=== PATIENT | female | born 1960 | race African-American/Black ===

== ENCOUNTER 2021-08-10 12:47 | Inpatient (IN) | payer OTHER ==
[~2021-08-10] VITALS: Ht 162.6 cm; Wt 54.6 kg
[~2021-08-10 12:47] MED LIST: ASPI81TA40 PO
[2021-08-10 14:39] LABS: BASOPHILS % (AUTO) 0.7 % (0.0-2.0); EOSINOPHILS % (AUTO) 1.2 % (1.0-6.0); HEMATOCRIT 45.3 % (36-46); HEMOGLOBIN 14.3 g/dL (12.0-16.0); LYMPHOCYTES # (AUTO) 3.6 K/uL (1.0-4.8); LYMPHOCYTES % (AUTO) 64.6 % (22.0-44.0); MEAN CORPUSCULAR HEMOGLOBIN 25.2 pg (26.0-34.0); MEAN CORPUSCULAR HGB CONC 31.6 G/dL (31.0-37.0); MEAN CORPUSCULAR VOLUME 80 fL (80-100); MONOCYTES # (AUTO) 0.6 K/uL (0.1-1.0); MONOCYTES % (AUTO) 10.4 % (2.0-9.0); NEUTROPHILS # (AUTO) 1.3 K/uL (1.8-7.7); NEUTROPHILS % (AUTO) 23.1 % (40.0-70.0); PLATELET COUNT (AUTO) 147 K/uL (150-450); RED BLOOD CELL COUNT(AUTO) 5.67 MIL/uL (4.00-5.20); RED CELL DISTRIBUTION WIDTH 13.9 % (11.5-14.5)
[2021-08-10 14:50] LABS: ANION GAP 7 mmol/L (8-16); CALCIUM, TOTAL 9.1 mg/dL (8.8-10.5); CARBON DIOXIDE 29 mmol/L (22-29); CHLORIDE 104 mmol/L (98-107); CREATININE 0.59 mg/dL (0.60-1.30); GLOMERULAR FILTR. RATE CALC > 60 mL/min (>60); GLUCOSE,RANDOM 63 mg/dL (70-110); POTASSIUM 4.1 mmol/L (3.5-5.1); SODIUM SERUM 140 mmol/L (136-145); UREA NITROGEN, BLOOD 13 mg/dL (7-18)
[2021-08-10 14:58] LABS: COVID AG,FIA SOURCE NASOPHARYNGEAL
[2021-08-10 15:16] LABS: PLATELET MORPHOLOGY COMMENT GIANT PLTS PRESENT
[2021-08-10] MEDS ORDERED: OxyCODONE HCL/ACETAMINOPHEN 5-325 MG TABLET PO PRN (16:00)
[2021-08-10] MEDS ORDERED: ONDANSETRON HCL 4 MG/2 ML VIAL IVP PRN (16:00)
[2021-08-10] MEDS ORDERED: ALBUTEROL SULFATE 2.5 MG/0.5 ML NEB SOLUTION NEB PRN (16:00)
[2021-08-10] MEDS ORDERED: ACETAMINOPHEN 325 MG TABLET PO PRN (16:00)
[2021-08-10] MEDS: ASPIRIN 81 MG CHEWABLE TABLET PO SCH (16:19)
[2021-08-10] MEDS: HEPARIN SODIUM,PORCINE 5,000 UNITS/ML VIAL SQ SCH ×2 (16:19→23:44)
[2021-08-10] MEDS: ATORVASTATIN CALCIUM 20 MG TABLET PO SCH (16:20)
[2021-08-10 18:43] VITALS: BP 125/64
[2021-08-10 19:18] VITALS: BP 120/67
[2021-08-10] MEDS: DOCUSATE SODIUM 100 MG CAPSULE PO SCH (21:20)
[2021-08-10] MEDS ORDERED: NICOTINE 14 MG/24 HOUR PATCH TD ONE (23:00)
[2021-08-11 00:27] VITALS: BP 137/59
[2021-08-11 04:45] VITALS: BP 146/85
[2021-08-11 07:21] VITALS: BP 136/76
[2021-08-11] MEDS: DOCUSATE SODIUM 100 MG CAPSULE PO SCH (08:49)
[2021-08-11] MEDS: ASPIRIN 81 MG CHEWABLE TABLET PO SCH (08:50)
[2021-08-11] MEDS: HEPARIN SODIUM,PORCINE 5,000 UNITS/ML VIAL SQ SCH (08:50)
[2021-08-11] MEDS: ATORVASTATIN CALCIUM 20 MG TABLET PO SCH (08:50)
[2021-08-11] MEDS ORDERED: AmLODIPine BESYLATE 10 MG TABLET PO SCH (09:00)
[2021-08-11] MEDS ORDERED: FAMOTIDINE 20 MG TABLET PO SCH (09:00)
[2021-08-11] MEDS ORDERED: ATOR20TA86 PO (10:21)
[2021-08-11 10:59] VITALS: BP 118/69
== END 2021-08-11 13:25 | disposition home or self-care (01) | DRG 69 ==
LOC: EMS 12:47 → 5S 15:49
PROVIDERS: ADMIT Internal Medicine; ATTEND Internal Medicine
DX: G45.9 Transient cerebral ischemic attack, unspecified (principal); F41.1 Generalized anxiety disorder; I10 Essential (primary) hypertension; Z20.822 Contact with and (suspected) exposure to COVID-19; I25.10 Atherosclerotic heart disease of native coronary artery without angina pectoris; I73.9 Peripheral vascular disease, unspecified; G62.9 Polyneuropathy, unspecified; J44.9 Chronic obstructive pulmonary disease, unspecified; F17.210 Nicotine dependence, cigarettes, uncomplicated; Z90.710 Acquired absence of both cervix and uterus; Z90.49 Acquired absence of other specified parts of digestive tract
CPT/HCPCS: 70450; 71045; 80048; 85025; 93005; 93306; 99285; G0378; J1644

== ENCOUNTER 2021-09-15 15:37 | Emergency (ER) | payer OTHER ==
[~2021-09-15] VITALS: Ht 167.6 cm; Wt 59.1 kg
[~2021-09-15 15:37] MED LIST changes: +ATOR20TA86 PO
[2021-09-15] MEDS ORDERED: HTN PO (15:48)
[2021-09-15] MEDS ORDERED: OXYMETAZOLINE HCL 0.05% 15 ML NASAL SPRAY NASAL ONE (16:45)
[2021-09-15 17:08] VITALS: BP 134/89
== END 2021-09-15 17:19 | disposition home or self-care (01) ==
LOC: EMS 15:47
DX: R04.0 Epistaxis (principal); I10 Essential (primary) hypertension; F41.9 Anxiety disorder, unspecified; I25.10 Atherosclerotic heart disease of native coronary artery without angina pectoris; F17.210 Nicotine dependence, cigarettes, uncomplicated; Z79.899 Other long term (current) drug therapy
CPT/HCPCS: 99282; Z7502; Z7610

== ENCOUNTER 2022-01-14 04:55 | Emergency (ER) | payer OTHER ==
[~2022-01-14] VITALS: Ht 167.6 cm; Wt 57.3 kg
[~2022-01-14 04:55] MED LIST changes: +HTN PO
[2022-01-14 06:16] LABS: COVID AG,FIA SOURCE NASAL SWAB
[2022-01-14 06:36] LABS: INFLUENZA TYPE A NEGATIVE FOR TYPE A (NEGATIVE); INFLUENZA TYPE B NEGATIVE FOR TYPE B (NEGATIVE)
[2022-01-14] MEDS ORDERED: ALBUTEROL SULFATE HFA 90 MCG/PUFF 8 GM INHALER IH ONE (07:30)
[2022-01-14] MEDS ORDERED: AZIT250T9 PO (08:51)
[2022-01-14 09:28] VITALS: BP 130/86
== END 2022-01-14 09:28 | disposition home or self-care (01) ==
LOC: EMS 04:58
DX: J44.1 Chronic obstructive pulmonary disease with (acute) exacerbation (principal); Z20.822 Contact with and (suspected) exposure to COVID-19; F41.9 Anxiety disorder, unspecified; F10.20 Alcohol dependence, uncomplicated; F17.200 Nicotine dependence, unspecified, uncomplicated; I25.10 Atherosclerotic heart disease of native coronary artery without angina pectoris; I10 Essential (primary) hypertension; Z86.73 Personal history of transient ischemic attack (TIA), and cerebral infarction without residual deficits; Z90.49 Acquired absence of other specified parts of digestive tract; Z90.710 Acquired absence of both cervix and uterus; Z86.19 Personal history of other infectious and parasitic diseases; Z86.79 Personal history of other diseases of the circulatory system; F17.210 Nicotine dependence, cigarettes, uncomplicated
CPT/HCPCS: 71046; 87804; 94640; 99284; 99406; J3535